=== PATIENT | male | born 1960 | race Caucasian/White ===

== ENCOUNTER 2018-11-27 16:18 | Inpatient (IN) | payer OTHER ==
[2018-11-27 21:13] VITALS: BMI 20.9
--- NOTE | 2018-11-28 00:12 | HP ---
COWS - Scale Resting Pulse: 1= OR 81-100 Sweatin=Flushed/Facial Moisture Restless Observation: 0= Sits Still Pupil Size: 0= Normal to Room Light Bone or Joint Aches: 2= Severe Diffuse Aches Runny Nose/ Eye Tearin= Runny Nose/Eyes GI Upset > 30mins: 3= Vomiting/Diarrhea (vomiting x 2, diarrhea x 4) Tremor Observation: 4= Gross Tremor/Twitching Yawning Observation: 0= None Anxiety or Irritability: 4=Extreme Anxiety Goose Flesh Skin: 0=Smooth Skin COWS Score: 18 CIWA Score - Admission Criteria OASAS Guidelines: Admission for Medically Managed Detox: Requires at least one of the followin. CIWA greater than 12 2. Seizures within the past 24 hours 3. Delirium tremens within the past 24 hours 4. Hallucinations within the past 24 hours 5. Acute intervention needed for co occurring medical disorder 6. Acute intervention needed for co occurring psychiatric disorder 7. Severe withdrawal that cannot be handled at a lower level of care (continued vomiting, continued diarrhea, abnormal vital signs) requiring intravenous medication and/or fluids 8. Admission [facility] Chief Complaint: Heroin withdrawal symptoms Allergies/Adverse Reactions: Allergies Allergy/AdvReac Type Severity Reaction Status Date / Time Penicillins AdvReac Verified 11/28/18 00:07 History of Present Illness: 58 years old with a 40 years history of heroin dependence is seeking admission to detox. Patient was last detoxed at [facility] 18 months ago. He reports 8 years of sobriety. He reports medical history of hypertension, seizures, depression and anxiety. He denies suicidal ideation at this time. Patient reports that overdosed in 2014, 2007 and 2002 from heroin. Exam Limitations: No Limitations - Ebola screening Have you traveled outside of the country in the last 21 days: No Have you had contact with anyone from an Ebola affected area: No Have you been sick,other than usual withdrawal symptoms: No Do you have a fever: No - Review of Systems Constitutional: Chills, Malaise, Changes in sleep, Weakness EENT: reports: No Symptoms Reported, Nose Congestion Respiratory: reports: No Symptoms reported Cardiac: reports: No Symptoms Reported GI: reports: Diarrhea (x 4), Nausea, Poor Appetite, Poor Fluid Intake, Vomiting (x 2), Abdominal cramping : reports: No Symptoms Reported Musculoskeletal: reports: Back Pain, Joint Pain, Muscle Pain Integumentary: reports: Dryness, Flushing Neuro: reports: Tremors Endocrine: reports: No Symptoms Reported Hematology: reports: No Symptoms Reported Psychiatric: reports: Anxious, Depressed Other Systems: Reviewed and Negative Patient History - Patient Medical History Hx Anemia: No Hx Asthma: No Hx Chronic Obstructive Pulmonary Disease (COPD): No Hx Cancer: No Hx Cardiac Disorders: No Hx Congestive Heart Failure: No Hx Hypertension: Yes (Lisinopril) Hx Hypercholesterolemia: No Hx Pacemaker: No HX Cerebrovascular Accident: No Hx Seizures: Yes (Not on medcation) Hx Dementia: No Hx Diabetes: No Hx Gastrointestinal Disorders: No Hx Liver Disease: No Hx Genitourinary Disorders: No Hx Sexually Transmitted Disorders: No Hx Renal Disease (ESRD): No Hx Thyroid Disease: No Hx Human Immunodeficiency Virus (HIV): No (Negative 2018) Hx Hepatitis C: No Hx Depression: Yes (Not on medication) Hx Suicide Attempt: No (Denies suicidal ideation at this time) Hx Bipolar Disorder: Yes (Celexa, abilify , clonazepam) Other Medical History: Anxiety- Not on medication - Patient Surgical History Past Surgical History: No - PPD History Previous Implant?: Yes Documented Results: Negative w/o proof Implanted On Prior [facility] Admission?: No PPD to be Administered?: Yes - Reproductive History Patient is a Female of Child Bearing Age (11 -55 yrs old): No (Male) - Smoking Cessation Smoking history: Current every day smoker Have you smoked in the past 12 months: Yes Aproximately how many cigarettes per day: 10 Hx Chewing Tobacco Use: No Initiated information on smoking cessation: Yes 'Breaking Loose' booklet given: 11/28/18 - Substance & Tx. History Hx Alcohol Use: No Hx Substance Use: Yes Substance Use Type: Cocaine, Heroin, Marijuana Hx Substance Use Treatment: Yes ([facility]) - Substances Abused Heroin Route: Inhalation Frequency: Daily Amount used: 4 BAGS Age of first use: 16 Date of Last Use: 11/27/18 Cocaine Route: Injection Frequency: Daily Amount used: $10 Age of first use: 18 Date of Last Use: 11/27/18 Family Disease History - Family Disease History Family History: Denies Admission Physical Exam BHS - Vital Signs Vital Signs: Vital Signs - 24 hr 11/27/18 21:12 Temperature 97.8 F Pulse Rate 83 Respiratory 18 Rate Blood Pressure 139/96 - Physical General Appearance: Yes: Moderate Distress, Tremorous, Irritable, Sweating, Anxious HEENTM: Yes: EOMI, Normal ENT Inspection, Normocephalic, ALTHEA Respiratory: Yes: Lungs Clear, Normal Breath Sounds, No Respiratory Distress Neck: Yes: Supple Breast: Yes: Breast Exam Deferred Cardiology: Yes: Regular Rhythm, Regular Rate Abdominal: Yes: Normal Bowel Sounds Genitourinary: Yes: Within Normal Limits Back: Yes: Normal Inspection Musculoskeletal: Yes: Back pain, Muscle Pain Extremities: Yes: Tremors Neurological: Yes: Alert, Normal Mood/Affect Integumentary: Yes: Warm Lymphatic: Yes: Within Normal Limits - Diagnostic (1) Alcohol dependence with uncomplicated withdrawal Current Visit: Yes Status: Chronic (2) Hypertension Current Visit: Yes Status: Chronic Qualifiers: Hypertension type: essential hypertension Qualified Code(s): I10 - Essential (primary) hypertension (3) Seizures Current Visit: Yes Status: Chronic (4) Depression Current Visit: Yes Status: Chronic Qualifiers: Depression Type: unspecified Qualified Code(s): F32.9 - Major depressive disorder, single episode, unspecified (5) Anxiety Current Visit: Yes Status: Chronic Cleared for Admission [facility] - Detox or Rehab [facility] Level of Care: Medically Managed Detox Regimen/Protocol: Methadone [facility] Breath Alcohol Content Breath Alcohol Content: 0 Urine Drug Screen - Results Drug Screen Negative: No Urine Drug Screen Results: THC-Marijuana, ANNIKA-Cocaine, OPI-Opiates
[2018-11-28] MEDS ORDERED: NICOTINE POLACRILEX 2 MG GUM BC PRN (00:22)
[2018-11-28] MEDS ORDERED: IBUPROFEN 400 MG TABLET (FP) PO PRN (00:22)
[2018-11-28] MEDS ORDERED: MAGNESIUM HYDROX 2400MG/30ML ORAL SUSPENSION 30 ML CUP PO PRN (00:22)
[2018-11-28] MEDS ORDERED: LOPERAMIDE HCL 2 MG CAPSULE PO PRN (00:22)
[2018-11-28] MEDS ORDERED: METHADONE HCL 10 MG TABLET (FOR DETOX USE ONLY) PO ONE ×3 (00:22→23:00)
[2018-11-28] MEDS ORDERED: guaiFENesin/D-METHORPHAN HB 10 ML UNIT-DOSE CUPS PO PRN (00:22)
[2018-11-28] MEDS ORDERED: ACETAMINOPHEN 325 MG TABLET (FP) PO PRN (00:22)
[2018-11-28] MEDS ORDERED: MAGNESIUM CITRATE 300 ML BOTTLE PO PRN (00:22)
[2018-11-28] MEDS ORDERED: MAG HYDROX/AL HYDROX/SIMETH 30 ML UNIT-DOSE CUP PO PRN (00:22)
[2018-11-28] MEDS ORDERED: P-EPHED 60MG/TRIPROLIDI 2.5MG TABLET PO PRN (00:22)
[2018-11-28] MEDS ORDERED: MENTHOL/PHENOL 1 EACH UD MM PRN (00:22)
[2018-11-28] MEDS: diazePAM 5 MG TABLET PO PRN ×3 (01:39→17:09)
[2018-11-28] MEDS ORDERED: cloNIDine HCL 0.1 MG TABLET PO ONE (01:58)
--- NOTE | 2018-11-28 02:01 | PN ---
[facility] Progress Note Note: Patient's blood pressure is B/ P 147/103. Patient is asymptomatic Vital Signs Temperature 98.4 F 11/28/18 01:05 Pulse Rate 65 11/28/18 01:05 Respiratory Rate 18 11/28/18 01:05 Blood Pressure 147/103 H 11/28/18 01:05 O2 Sat by Pulse Oximetry (%) Action: Clonidine 0.1mg 1 tablet oral daily
[2018-11-28] MEDS: PRENATAL VITAMINS W/ FOLIC ACID TABLET (FP) PO SCH (10:26)
[2018-11-28] MEDS: NICOTINE 14 MG/24 HOURS TOPICAL PATCH TD SCH (10:29)
[2018-11-28] MEDS ORDERED: FLU VACCINE QUAD 60 MCG/0.5 ML (MDV 18-19) IM ONE (12:00)
--- NOTE | 2018-11-28 13:23 | PN ---
BHS COWS - Scale Resting Pulse: 0= [place] 80 or Below Sweatin= No chills or Flushing Restless Observation: 0= Sits Still Pupil Size: 0= Normal to Room Light Bone or Joint Aches: 0= None Runny Nose/ Eye Tearin= Nasal Congestion GI Upset > 30mins: 0= None Tremor Observation of Outstretched Hands: 2= Slight Tremor Visible Yawning Observation: 1= 1-2x During Session Anxiety or Irritability: 2=Irritable/Anxious Goose Flesh Skin: 3=Piloerection COWS Score: 9 BHS Progress Note (SOAP) Subjective: Tremors, Fatigue, Interrupted Sleep. Objective: PATIENT A & O X 3. IN NO ACUTE DISTRESS. 11/28/18 13:24 Vital Signs Temperature 97.9 F 11/28/18 13:22 Pulse Rate 87 11/28/18 13:22 Respiratory Rate 18 11/28/18 13:22 Blood Pressure 115/67 11/28/18 13:22 O2 Sat by Pulse Oximetry (%) ADMISSION LAB RESULTS PENDING. Assessment: 11/28/18 13:24 WITHDRAWAL SYMPTOMS. Plan: CONTINUE DETOX.
--- NOTE | 2018-11-28 14:05 | CONSULT ---
[facility] Psychiatric Consult - Data Date of interview: 11/28/18 Admission source: [facility] Identifying data: First admission to [facility] for this 58 y/o male undrgoing detoxification (heroin, cocaine). Interviewed on . Patient is , no children, domiciled, unemployed and supported on SSI benefits. Substance Abuse History: Discussed in this interview. Details incorporated in current [facility] report : Smoking history: Current every day smoker. Have you smoked in the past 12 months: Yes. Aproximately how many cigarettes per day: 10. Hx Chewing Tobacco Use: No. Initiated information on smoking cessation: Yes. 'Breaking Loose' booklet given: 11/28/18. - Substance & Tx. History. Hx Alcohol Use: No. Hx Substance Use: Yes. Substance Use Type: Cocaine, Heroin, Marijuana. Hx Substance Use Treatment: Yes ([facility]). - Substances Abused. Heroin. Route: Inhalation. Frequency: Daily. Amount used: 4 BAGS. Age of first use: 16. Date of Last Use: 11/27/18. Cocaine. Route: Injection. Frequency: Daily. Amount used: $10. Age of first use: 18. Date of Last Use: 11/27/18 Medical History: Hypertension and seizure disorder. Psychiatric History: No reported history of psychiatric hospitalizations. Patient endorses current psychiatric OPD care at the [facility] in [facility] (Dr Astorga). Diagnosed with Bipolar Disorder. Treated with aripriprazole, citalopram, zolpidem and clonazepam. Mr Jaramillo presents as a clear and reliable historian and he reports consistent adherence to his outpatient care. " I have been under the care of Dr Astorga for years. "Patient denies history of suicide attempts. Physical/Sexual Abuse/Trauma History: Patient denies. Additional Comment: Urine Drug Screen Results: THC-Marijuana, ANNIKA-Cocaine, OPI- Opiates. Noted. Mental Status Exam - Mental Status Exam Alert and Oriented to: Time, Place, Person Cognitive Function: Good Patient Appearance: Well Groomed (tall, thin habitus) Mood: Hopeful, Euthymic Affect: Appropriate, Normal Range Patient Behavior: Appropriate, Cooperative Speech Pattern: Clear Voice Loudness: Normal Thought Process: Intact, Goal Oriented Thought Disorder: Not Present Hallucinations: Denies Suicidal Ideation: Denies Homicidal Ideation: Denies Insight/Judgement: Fair Sleep: Poorly, Difficulty falling asleep Appetite: Good Muscle strength/Tone: Normal Gait/Station: Normal Psychiatric Findings - Problem List ([place] 1, 2,3) (1) Alcohol dependence with uncomplicated withdrawal Current Visit: Yes Status: Chronic (2) Opioid dependence Current Visit: Yes Status: Chronic (3) Cannabis abuse Current Visit: Yes Status: Chronic (4) Nicotine dependence Current Visit: Yes Status: Chronic (5) History of depression Current Visit: Yes Status: Chronic - Initial Treatment Plan Initial Treatment Plan: Psychoeducation. Detoxification in progress. Sleep hygiene. Support. AA/NA meetings. At the request of the patient, will resume : abilify 5 mg po hs + citalopram 40 mg po daily. Side effects/benefits of both drugs are discussed with the patient. Medications confirmed by survey of pharmacy claims of 11/10/18 from [facility]. Mr Jaramillo is agreable with this plan of care. Observation.
[2018-11-28] MEDS ORDERED: MELATONIN 5 MG TABLETS PO PRN (22:00)
[2018-11-28] MEDS: THIAMINE HCL 100 MG TABLET (FP) PO SCH (22:17)
[2018-11-28] MEDS: ARIPiprazole 5 MG TABLET (FP) PO SCH (22:17)
[2018-11-29] MEDS: diazePAM 5 MG TABLET PO PRN ×4 (02:09→22:06)
[2018-11-29] MEDS ORDERED: METHADONE HCL 10 MG TABLET (FOR DETOX USE ONLY) PO ONE (10:00)
[2018-11-29] MEDS: PRENATAL VITAMINS W/ FOLIC ACID TABLET (FP) PO SCH (10:25)
[2018-11-29] MEDS: NICOTINE 14 MG/24 HOURS TOPICAL PATCH TD SCH (10:25)
[2018-11-29] MEDS: CITALOPRAM HYDROBROMIDE 20 MG TABLET (FP) PO SCH (10:26)
[2018-11-29 10:35] LABS: ALBUMIN 2.8 g/dl (3.4-5.0); ALK PHOS 62 U/L (45-117); ANION GAP 8 MMOL/L (8-16); BILIRUBIN,TOTAL 0.2 mg/dL (0.2-1); BLOOD UREA NITROGEN 29 mg/dL (7-18); CALCIUM 7.9 mg/dL (8.5-10.1); CHLORIDE 105 mmol/L (98-107); CO2 27 mmol/L (21-32); CREATININE 1.1 mg/dL (0.55-1.3); GLUCOSE,RANDOM 97 mg/dL (74-106); POTASSIUM 3.9 mmol/L (3.5-5.1); SGOT/AST 21 U/L (15-37); SGPT/ALT 27 U/L (13-61); SODIUM 140 mmol/L (136-145); TOT PROT 5.8 g/dl (6.4-8.2)
[2018-11-29 12:09] LABS: HEMATOCRIT 36.6 % (35.4-49); HEMOGLOBIN 12.6 GM/dL (11.7-16.9); MCH 31.8 pg (25.7-33.7); MCHC 34.5 g/dl (32.0-35.9); MEAN CELL VOLUME 92.2 fl (80-96); MEAN PLT VOLUME 9.1 fl (7.5-11.1); PLATELET COUNT 182 K/MM3 (134-434); RBC 3.97 M/mm3 (4.00-5.60); RDW 14.5 % (11.9-15.9)
--- NOTE | 2018-11-29 16:26 | PN ---
BHS COWS - Scale Resting Pulse: 0= [place] 80 or Below Sweatin= No chills or Flushing Restless Observation: 0= Sits Still Pupil Size: 0= Normal to Room Light Bone or Joint Aches: 1= Mild Discomfort Runny Nose/ Eye Tearin= Nasal Congestion GI Upset > 30mins: 1= Stomach Cramp Tremor Observation of Outstretched Hands: 0= None Yawning Observation: 0= None Anxiety or Irritability: 0= None Goose Flesh Skin: 0=Smooth Skin COWS Score: 3 BHS Progress Note (SOAP) Subjective: pt states doing well on the detox protocol O: Vital Signs - 24 hr 11/28/18 11/28/18 11/29/18 17:46 20:55 00:30 Temperature 96.3 F L 98.4 F Pulse Rate 64 75 Respiratory 18 18 18 Rate Blood Pressure 127/77 120/82 11/29/18 11/29/18 11/29/18 03:30 07:47 09:13 Temperature 99.1 F 96.3 F L Pulse Rate 74 70 Respiratory 18 18 16 Rate Blood Pressure 129/85 132/88 11/29/18 13:41 Temperature 98.8 F Pulse Rate 72 Respiratory 20 Rate Blood Pressure 126/83 Laboratory Tests 11/29/18 11/29/18 11/29/18 07:00 07:00 07:00 WBC 4.0 RBC 3.97 L Hgb 12.6 Hct 36.6 MCV 92.2 MCH 31.8 MCHC 34.5 RDW 14.5 Plt Count 182 MPV 9.1 Sodium 140 Potassium 3.9 Chloride 105 Carbon Dioxide 27 Anion Gap 8 BUN 29 H Creatinine 1.1 Creat Clearance w eGFR > 60 Random Glucose 97 Calcium 7.9 L Total Bilirubin 0.2 AST 21 ALT 27 Alkaline Phosphatase 62 Total Protein 5.8 L Albumin 2.8 L RPR Titer Nonreactive a/p: continue methadone detox protocol- pt doing well.
[2018-11-29] MEDS: ARIPiprazole 5 MG TABLET (FP) PO SCH (22:05)
[2018-11-29] MEDS: THIAMINE HCL 100 MG TABLET (FP) PO SCH (22:06)
[2018-11-30] MEDS: diazePAM 5 MG TABLET PO PRN ×3 (05:35→22:12)
[2018-11-30] MEDS ORDERED: METHADONE HCL 5 MG TABLET (FOR DETOX USE ONLY) PO ONE (10:00)
[2018-11-30] MEDS: NICOTINE 14 MG/24 HOURS TOPICAL PATCH TD SCH (10:51)
[2018-11-30] MEDS: CITALOPRAM HYDROBROMIDE 20 MG TABLET (FP) PO SCH (10:51)
[2018-11-30] MEDS: PRENATAL VITAMINS W/ FOLIC ACID TABLET (FP) PO SCH (10:51)
--- NOTE | 2018-11-30 16:28 | PN ---
BHS Progress Note (SOAP) Subjective: Anxious, Body Aches. Objective: PATIENT A & O X 3. IN NO ACUTE DISTRESS. 11/30/18 16:27 Vital Signs Temperature 98.3 F 11/30/18 13:25 Pulse Rate 68 11/30/18 13:25 Respiratory Rate 18 11/30/18 13:25 Blood Pressure 125/86 11/30/18 13:25 O2 Sat by Pulse Oximetry (%) Laboratory Tests 11/29/18 11/29/18 11/29/18 07:00 07:00 07:00 WBC 4.0 RBC 3.97 L Hgb 12.6 Hct 36.6 MCV 92.2 MCH 31.8 MCHC 34.5 RDW 14.5 Plt Count 182 MPV 9.1 Sodium 140 Potassium 3.9 Chloride 105 Carbon Dioxide 27 Anion Gap 8 BUN 29 H Creatinine 1.1 Creat Clearance w eGFR > 60 Random Glucose 97 Calcium 7.9 L Total Bilirubin 0.2 AST 21 ALT 27 Alkaline Phosphatase 62 Total Protein 5.8 L Albumin 2.8 L RPR Titer Nonreactive LABS NOTED. Assessment: 11/30/18 16:27 WITHDRAWAL SYMPTOMS. Plan: CONTINUE DETOX. INCREASE DAILY PO FLUID INTAKE. PRN FLEXERIL PO FOR BODY ACHES / MUSCLE SPASMS.
[2018-11-30] MEDS: THIAMINE HCL 100 MG TABLET (FP) PO SCH (22:12)
[2018-11-30] MEDS: ARIPiprazole 5 MG TABLET (FP) PO SCH (22:12)
[2018-12-01] MEDS ORDERED: METHADONE HCL 5 MG TABLET (FOR DETOX USE ONLY) PO ONE (10:00)
[2018-12-01] MEDS: CITALOPRAM HYDROBROMIDE 20 MG TABLET (FP) PO SCH (10:13)
[2018-12-01] MEDS: PRENATAL VITAMINS W/ FOLIC ACID TABLET (FP) PO SCH (10:13)
[2018-12-01] MEDS: NICOTINE 14 MG/24 HOURS TOPICAL PATCH TD SCH (10:13)
--- NOTE | 2018-12-01 13:12 | PN ---
S Progress Note (SOAP) Subjective: interrupted sleep, lbp, bone pain and diarrhea Objective: 12/01/18 13:11 Vital Signs Temperature 97.9 F 12/01/18 09:40 Pulse Rate 81 12/01/18 09:40 Respiratory Rate 18 12/01/18 09:40 Blood Pressure 149/99 12/01/18 09:40 O2 Sat by Pulse Oximetry (%) Laboratory Tests 11/29/18 11/29/18 11/29/18 07:00 07:00 07:00 WBC 4.0 RBC 3.97 L Hgb 12.6 Hct 36.6 MCV 92.2 MCH 31.8 MCHC 34.5 RDW 14.5 Plt Count 182 MPV 9.1 Sodium 140 Potassium 3.9 Chloride 105 Carbon Dioxide 27 Anion Gap 8 BUN 29 H Creatinine 1.1 Creat Clearance w eGFR > 60 Random Glucose 97 Calcium 7.9 L Total Bilirubin 0.2 AST 21 ALT 27 Alkaline Phosphatase 62 Total Protein 5.8 L Albumin 2.8 L RPR Titer Nonreactive pt aOX3 IN NAD AMBULATING Assessment: 12/01/18 13:12 WITHDRAWAL SX'S Plan: CONT. DETOX INCREASE FLUIDS IMODIUM PRN MOTRIN PRN D/C IN AM,
[2018-12-01] MEDS: hydrOXYzine PAMOATE 50 MG CAPSULE (FP) PO PRN (22:19)
[2018-12-01] MEDS: ARIPiprazole 5 MG TABLET (FP) PO SCH (22:20)
[2018-12-01] MEDS: THIAMINE HCL 100 MG TABLET (FP) PO SCH (22:20)
[2018-12-01] MEDS: CYCLOBENZAPRINE HCL 10 MG TABLET (FP) PO PRN (22:20)
[2018-12-02] MEDS ORDERED: METHADONE HCL 10 MG TABLET (FOR DETOX USE ONLY) PO ONE (10:00)
[2018-12-02] MEDS: CYCLOBENZAPRINE HCL 10 MG TABLET (FP) PO PRN (10:11)
[2018-12-02] MEDS: hydrOXYzine PAMOATE 50 MG CAPSULE (FP) PO PRN (10:11)
[2018-12-02] MEDS: NICOTINE 14 MG/24 HOURS TOPICAL PATCH TD SCH (10:11)
[2018-12-02] MEDS: CITALOPRAM HYDROBROMIDE 20 MG TABLET (FP) PO SCH (10:11)
[2018-12-02] MEDS: PRENATAL VITAMINS W/ FOLIC ACID TABLET (FP) PO SCH (10:11)
--- NOTE | 2018-12-02 10:43 | PN ---
BHS Progress Note (SOAP) Subjective: Aches and weakness, interrupted sleep and irritability Objective: 12/02/18 10:42 Vital Signs 12/02/18 12/02/18 06:40 09:16 Temperature 98.2 F 97.7 F Pulse Rate 83 81 Respiratory 16 20 Rate Blood Pressure 142/110 H 146/108 H Laboratory Last Values WBC 4.0 K/mm3 (4.0-10.0) 11/29/18 07:00 RBC 3.97 M/mm3 (4.00-5.60) L 11/29/18 07:00 Hgb 12.6 GM/dL (11.7-16.9) 11/29/18 07:00 Hct 36.6 % (35.4-49) 11/29/18 07:00 MCV 92.2 fl (80-96) 11/29/18 07:00 MCH 31.8 pg (25.7-33.7) 11/29/18 07:00 MCHC 34.5 g/dl (32.0-35.9) 11/29/18 07:00 RDW 14.5 % (11.9-15.9) 11/29/18 07:00 Plt Count 182 K/MM3 (134-434) 11/29/18 07:00 MPV 9.1 fl (7.5-11.1) 11/29/18 07:00 Sodium 140 mmol/L (136-145) 11/29/18 07:00 Potassium 3.9 mmol/L (3.5-5.1) 11/29/18 07:00 Chloride 105 mmol/L (98-107) 11/29/18 07:00 Carbon Dioxide 27 mmol/L (21-32) 11/29/18 07:00 Anion Gap 8 MMOL/L (8-16) 11/29/18 07:00 BUN 29 mg/dL (7-18) H 11/29/18 07:00 Creatinine 1.1 mg/dL (0.55-1.3) 11/29/18 07:00 Creat Clearance w eGFR > 60 (>60) 11/29/18 07:00 Random Glucose 97 mg/dL (74-106) 11/29/18 07:00 Calcium 7.9 mg/dL (8.5-10.1) L 11/29/18 07:00 Total Bilirubin 0.2 mg/dL (0.2-1) 11/29/18 07:00 AST 21 U/L (15-37) 11/29/18 07:00 ALT 27 U/L (13-61) 11/29/18 07:00 Alkaline Phosphatase 62 U/L (45-117) 11/29/18 07:00 Total Protein 5.8 g/dl (6.4-8.2) L 11/29/18 07:00 Albumin 2.8 g/dl (3.4-5.0) L 11/29/18 07:00 RPR Titer Nonreactive (NONREACTIVE) 11/29/18 07:00 Labs noted Assessment: 12/02/18 10:42 Withdrawal sx Plan: Continue detox
[2018-12-02] MEDS: THIAMINE HCL 100 MG TABLET (FP) PO SCH (22:05)
[2018-12-02] MEDS: ARIPiprazole 5 MG TABLET (FP) PO SCH (22:06)
[2018-12-03] MEDS ORDERED: METHADONE HCL 5 MG TABLET (FOR DETOX USE ONLY) PO ONE (06:00)
[2018-12-03] MEDS: hydrOXYzine PAMOATE 50 MG CAPSULE (FP) PO PRN (06:08)
[2018-12-03 09:19] VITALS: BP 144/92; PULSE 84; TEMP 97.2
[2018-12-03] MEDS: CITALOPRAM HYDROBROMIDE 20 MG TABLET (FP) PO SCH (09:20)
[2018-12-03] MEDS: PRENATAL VITAMINS W/ FOLIC ACID TABLET (FP) PO SCH (09:20)
--- NOTE | 2018-12-03 15:51 | DS ---
[facility] Detox Discharge Summary Admission Date: 11/27/18 Discharge Date: 12/03/18 - History Present History: Opioid Dependence Pertinent Past History: pt left for home- states he did not want to go for rehab. d/w pt to join an MAT - methadone or suboxone- pt agreed to follow up. Did not need any discharge meds. - Physical Exam Results Vital Signs: Vital Signs Temperature 97.2 F L 12/03/18 09:19 Pulse Rate 84 12/03/18 09:19 Respiratory Rate 16 12/03/18 09:19 Blood Pressure 144/92 12/03/18 09:19 O2 Sat by Pulse Oximetry (%) - Treatment Hospital Course: Detox Protocol Followed, Detoxed Safely, Responded well, Discharged Condition Good - Medication Discharge Medications: Ambulatory Orders Aripiprazole [Abilify -] 5 mg PO HS 11/28/18 Citalopram Hydrobromide [Celexa -] 40 mg PO DAILY 11/28/18 Lisinopril [Prinivil -] 40 mg PO DAILY 11/28/18 - AMA Did Patient Leave Against Medical Advice: No
== END 2018-12-03 09:26 | disposition home or self-care (01) | DRG 773 ==
LOC: YASAS 16:18 → Y6N 23:47
PROVIDERS: ADMIT Neuromusculoskeletal Medicine & OMM; ATTEND Neuromusculoskeletal Medicine & OMM
PROC: HZ2ZZZZ Detoxification Services for Substance Abuse Treatment (ICD-10-PCS; principal; 2018-11-27)
DX: F11.23 Opioid dependence with withdrawal (principal); F10.230 Alcohol dependence with withdrawal, uncomplicated; F14.20 Cocaine dependence, uncomplicated; F12.10 Cannabis abuse, uncomplicated; F17.210 Nicotine dependence, cigarettes, uncomplicated; F32.9 Major depressive disorder, single episode, unspecified; F41.9 Anxiety disorder, unspecified; I10 Essential (primary) hypertension; Z88.0 Allergy status to penicillin; Z86.69 Personal history of other diseases of the nervous system and sense organs
CPT/HCPCS: 36415; 80053; 85027; 86593; 90688; G0008; J0735